=== PATIENT | male | born 1970 | race Caucasian/White ===

== ENCOUNTER 2024-03-11 08:57 | Emergency (ER) | payer OTHER ==
[~2024-03-11] VITALS: Ht 188 cm; Wt 120.2 kg
[~2024-03-11 08:57] MED LIST: LISINOPRIL10 MG PO; LOSARTAN POTAS100 MG PO; MECLIZINE HCL25 MG PO; METFORMIN HCL500 M1 PO; PAROXETINE HCL20 MG PO; PERCOCET 5-3251 EACH PO; PRILOSEC20 MG PO; SIMVASTATIN20 MG PO; TYLENOL WITH C1 EACH PO; ULTRAM50 MG PO; ZOFRAN ODT8 MG PO
[2024-03-11 09:28] LABS: BASOPHILS 0.8 % (0-2); HEMATOCRIT 45.8 % (35.0-50.0); HEMOGLOBIN 15.9 g/dL (12.0-18.0); LYMPHOCYTES 23.1 % (24-44); MCH 31.1 (27-36); MCHC 34.7 g/dl (30-36); MCV 89.6 fl (81-99); MONOCYTES 6.8 % (0-12); NEUTROPHILS 68.3 % (39-80); PLATELET COUNT 195 K/uL (140-440); RBC 5.11 M/ul (4.3-5.7)
[2024-03-11 09:51] LABS: ALBUMIN 3.5 g/dL (3.4-5.0); ANION GAP 13.3 (7-21); BILIRUBIN, TOTAL 0.4 ng/dL (0.2-1.0); BUN/CREATININE RATIO 14.16 (6.0-28.6); CALCIUM 8.9 mg/dL (8.5-10.1); CREATININE, SERUM 1.2 mg/dL (0.70-1.30); POTASSIUM 4.3 mmol/L (3.5-5.1)
[2024-03-11] MEDS ORDERED: HEParin SOD (PORCINE) 5,000 UNIT/ML VIAL IV ONE (10:00)
[2024-03-11] MEDS ORDERED: ASPIRIN 81 MG CHEW PO ONE ×2 (10:00→10:15)
[2024-03-11] MEDS ORDERED: HEPARIN SOD,PORK IN 0.45% NACL 500 ML IV SCH (10:00)
[2024-03-11] MEDS ORDERED: NITROGLYCERIN 0.4 MG/HR 1 EA TDSY TD ONE (10:15)
[2024-03-11] MEDS ORDERED: METOPROLOL TARTRATE 5 MG/5 ML VIAL IV ONE (11:15)
[2024-03-11 14:57] VITALS: BP 111/73
--- NOTE | 2024-03-12 19:21 | EKG ---
[facility] [address] [place] [address] Signed Normal sinus rhythm Normal ECG When compared with ECG of 21-JUN-2023 11:41, No significant change was found Confirmed by Dallas Harper MD ([id number]) on 03/12/2024 7:21:48 PM Electronically Signed By: DALLAS HARPER MD 03/12/241920 PATIENT NAME: LANDEN CIFUENTES Electrocardiogram DATE OF : 70 PHYSICIAN: DALLAS HARPER MD REPORT #: [id number] REPORT IS CONFIDENTIAL AND NOT TO BE RELEASED WITHOUT AUTHORIZATION
== END 2024-03-11 14:57 | disposition short-term general hospital (02) ==
LOC: ED 08:57
PROVIDERS: Emergency Medicine
DX: I21.4 Non-ST elevation (NSTEMI) myocardial infarction (principal); Z87.891 Personal history of nicotine dependence; Z88.1 Allergy status to other antibiotic agents; Z88.5 Allergy status to narcotic agent; Z79.84 Long term (current) use of oral hypoglycemic drugs; Z79.899 Other long term (current) drug therapy
CPT/HCPCS: 36415; 71045; 80053; 83690; 83880; 84484; 85025; 93005; 93010; 96374; 96375; 99285-25; A9270; J1644

== ENCOUNTER 2024-04-28 01:47 | Emergency (ER) | payer OTHER ==
[~2024-04-28] VITALS: Ht 188 cm; Wt 108.9 kg
[2024-04-28] MEDS ORDERED: DIPHENOXYLATE/ATROPINE 1 EA TAB PO ONE (02:00)
[2024-04-28] MEDS ORDERED: SODIUM CHLORIDE 0.9% 1,000 ML IV ONE (02:00)
[2024-04-28] MEDS ORDERED: ondansetron HCL 4 MG/2 ML VIAL IV ONE (02:00)
[2024-04-28] MEDS ORDERED: AMLODIPINE BESYL5 MG PO (02:18)
[2024-04-28] MEDS ORDERED: CLOPIDOGREL75 MG PO (02:19)
[2024-04-28] MEDS ORDERED: ASPIRIN81 MG PO (02:19)
[2024-04-28 02:20] LABS: BASOPHILS 0.7 % (0-2); EOSINOPHILS 2.3 % (0-6); HEMATOCRIT 43.9 % (35.0-50.0); HEMOGLOBIN 14.6 g/dL (12.0-18.0); LYMPHOCYTES 25.3 % (24-44); MCH 29.7 (27-36); MCHC 33.3 g/dl (30-36); MCV 89.2 fl (81-99); MONOCYTES 8.9 % (0-12); NEUTROPHILS 62.8 % (39-80); PLATELET COUNT 232 K/uL (140-440); RBC 4.92 M/ul (4.3-5.7); RDW 14.5 (10.5-15.0)
[2024-04-28] MEDS ORDERED: LANTUS SOL100 UNIT/1 SUB-Q (02:20)
[2024-04-28] MEDS ORDERED: MAGNESIUM CITR125 MG PO (02:21)
[2024-04-28] MEDS ORDERED: OMEPRAZOLE20 MG PO (02:21)
[2024-04-28] MEDS ORDERED: OZEMPIC0.25 MG/02 SQ (02:22)
[2024-04-28] MEDS ORDERED: TAMSULOSIN HCL0.4 MG PO (02:22)
[2024-04-28] MEDS ORDERED: OXYCODONE HCL5 MG PO (02:22)
[2024-04-28 02:44] LABS: ALBUMIN 3.6 g/dL (3.4-5.0); ALBUMIN/GLOBULIN RATIO 0.97 (1.1-2.4); ANION GAP 11.8 (7-21); BILIRUBIN, TOTAL 0.4 ng/dL (0.2-1.0); BUN/CREATININE RATIO 15.74 (6.0-28.6); CALCIUM 9.4 mg/dL (8.5-10.1); CREATININE, SERUM 1.08 mg/dL (0.70-1.30); MAGNESIUM 2.2 mg/dL (1.8-2.4); POTASSIUM 3.8 mmol/L (3.5-5.1); PROTEIN, TOTAL 7.3 g/dL (6.4-8.2)
[2024-04-28 03:00] LABS: INFLUENZA B NAA NEGATIVE (NEGATIVE); RESPIRATORY SYNCYTIAL VIR NAA NEGATIVE (NEGATIVE)
[2024-04-28 03:35] LABS: BILIRUBIN, URINE NEGATIVE (negative); BLOOD/HGB, URINE NEGATIVE (Negative); KETONE, URINE NEGATIVE (Negative); LEUK ESTERASE, URINE NEGATIVE (negative); NITRITE, URINE NEGATIVE (negative)
[2024-04-28] MEDS ORDERED: ONDANSETRON ODT8 MG PO (03:53)
[2024-04-28] MEDS ORDERED: LOMOTIL TABLET1 EACH PO (03:53)
[2024-04-28] MEDS ORDERED: ONDANSETRON 4 MG HOME.PACK SL ONE (04:00)
[2024-04-28 04:21] VITALS: BP 124/79
== END 2024-04-28 04:14 | disposition home or self-care (01) ==
LOC: ED 01:47
PROVIDERS: Family Medicine
DX: K52.9 Noninfective gastroenteritis and colitis, unspecified (principal); I10 Essential (primary) hypertension; E78.00 Pure hypercholesterolemia, unspecified; K21.9 Gastro-esophageal reflux disease without esophagitis; Z87.891 Personal history of nicotine dependence; Z88.1 Allergy status to other antibiotic agents; Z88.5 Allergy status to narcotic agent; Z79.01 Long term (current) use of anticoagulants; Z79.82 Long term (current) use of aspirin; Z79.84 Long term (current) use of oral hypoglycemic drugs; Z79.4 Long term (current) use of insulin; Z79.85 Long-term (current) use of injectable non-insulin antidiabetic drugs; Z79.899 Other long term (current) drug therapy
CPT/HCPCS: 36415; 80053; 81003; 83690; 83735; 85025; 87502; 96374; 99284-25; A9270; J2405; J7030; U0002